=== PATIENT | male | born 1955 | race Caucasian/White ===

== ENCOUNTER 2017-02-27 15:18 | Emergency (ER) | payer BC ==
[~2017-02-27] VITALS: Ht 190.5 cm; Wt 79.4 kg
[2017-02-27 18:54] VITALS: BP 144/87
== END 2017-02-27 18:54 | disposition home or self-care (01) ==
LOC: ED 15:18
DX: N40.0 Benign prostatic hyperplasia without lower urinary tract symptoms (principal); I10 Essential (primary) hypertension
CPT/HCPCS: J7030